=== PATIENT | female | born 1970 | race Caucasian/White ===

== ENCOUNTER 2022-01-19 12:14 | Inpatient (IN) | payer OTHER ==
[2022-01-19 13:15] VITALS: BMI 22.3
[2022-01-19] MEDS ORDERED: BISMUTH SUBSALICYLATE 262 MG/15 ML BTL PO PRN (13:56)
[2022-01-19] MEDS ORDERED: ACETAMINOPHEN 325 MG TABLET (FP) PO PRN ×2 (13:56)
[2022-01-19] MEDS ORDERED: LOPERAMIDE HCL 2 MG CAPSULE PO PRN (13:56)
[2022-01-19] MEDS ORDERED: MAGNESIUM HYDROX 2400MG/30ML ORAL SUSPENSION 30 ML CUP PO PRN (13:56)
[2022-01-19] MEDS ORDERED: BENZOCAINE/MENTHOL (CHLORASEPTIC ) LOZENGE MM PRN (13:56)
[2022-01-19] MEDS ORDERED: DICYCLOMINE HCL 10 MG CAPSULE PO PRN (13:56)
[2022-01-19] MEDS ORDERED: NALOXONE HCL (KLOXXADO) 8 MG SPRAY NS PRN (13:56)
[2022-01-19] MEDS ORDERED: ONDANSETRON *ODT* 4 MG TABLET SL PRN (13:56)
[2022-01-19] MEDS ORDERED: POLYETHYLENE GLYCOL (HEALTHYLAX) 3350 17 GM PACKET PO PRN (13:56)
[2022-01-19] MEDS ORDERED: MAG HYDROX/AL HYDROX/SIMETH 30 ML UNIT-DOSE CUP PO PRN (13:56)
[2022-01-19] MEDS: PRENATAL VITAMINS W/ FOLIC ACID TABLET (FP) PO SCH (15:58)
[2022-01-19 17:20] LABS: HEMOGLOBIN 12.3 GM/dL (10.7-15.3); MCHC 32.3 g/dl (32.0-36.0); MEAN CELL VOLUME 83.6 fl (80-96); MEAN PLT VOLUME 7.9 fl (7.5-11.1); PLATELET COUNT 392 10^3/uL (134-434); RBC 4.54 M/mm3 (3.60-5.2); RDW 14.3 % (11.6-15.6); WHITE BLOOD COUNT 10.1 K/mm3 (4.0-10.0)
[2022-01-19 17:23] LABS: ALBUMIN 3.4 g/dl (3.4-5.0); CALCIUM 8.8 mg/dL (8.5-10.1)
[2022-01-19] MEDS: diazePAM 5 MG TABLET PO SCH ×2 (17:23→22:06)
[2022-01-19 17:28] LABS: BILIRUBIN,TOTAL 0.2 mg/dL (0.2-1); TOT PROT 6.8 g/dl (6.4-8.2)
[2022-01-19] MEDS: NICOTINE 10 MG CARTRIDGE (INHALER) IH PRN (19:47)
[2022-01-19] MEDS: THIAMINE HCL 100 MG TABLET (FP) PO SCH (22:06)
[2022-01-19] MEDS: MELATONIN 5 MG TABLETS PO SCH (22:06)
[2022-01-19] MEDS: METHOCARBAMOL 500 MG TABLET PO PRN (23:15)
[2022-01-20] MEDS: hydrOXYzine PAMOATE 25 MG CAPSULE (FP) PO PRN (03:53)
[2022-01-20] MEDS: NICOTINE 10 MG CARTRIDGE (INHALER) IH PRN ×3 (04:50→20:39)
[2022-01-20] MEDS: diazePAM 5 MG TABLET PO SCH ×4 (04:50→22:03)
[2022-01-20] MEDS: METHOCARBAMOL 500 MG TABLET PO PRN ×2 (08:31→17:17)
[2022-01-20] MEDS ORDERED: methaDONE HCL 10 MG TABLET PO ONE (09:20)
[2022-01-20] MEDS ORDERED: methaDONE 40 MG, methaDONE 20 MG PO ONE (09:26)
[2022-01-20] MEDS: PRENATAL VITAMINS W/ FOLIC ACID TABLET (FP) PO SCH (09:40)
[2022-01-20] MEDS: MELATONIN 5 MG TABLETS PO SCH (22:02)
[2022-01-20] MEDS: THIAMINE HCL 100 MG TABLET (FP) PO SCH (22:03)
[2022-01-20] MEDS: QUEtiapine FUMARATE 50 MG TABLET PO SCH (22:03)
[2022-01-21] MEDS: diazePAM 5 MG TABLET PO PRN ×2 (02:01→10:06)
[2022-01-21] MEDS: METHOCARBAMOL 500 MG TABLET PO PRN ×2 (03:26→17:33)
[2022-01-21] MEDS ORDERED: methaDONE HCL 10 MG TABLET PO SCH (06:00)
[2022-01-21] MEDS: diazePAM 5 MG TABLET PO SCH ×3 (06:03→22:06)
[2022-01-21] MEDS: methaDONE 40 MG, methaDONE 20 MG PO SCH (06:04)
[2022-01-21 10:03] LABS: ALBUMIN 3.3 g/dl (3.4-5.0); BLOOD UREA NITROGEN 25.2 mg/dL (7-18)
[2022-01-21 10:05] LABS: CALCIUM 9.3 mg/dL (8.5-10.1)
[2022-01-21 10:06] LABS: CREATININE 0.9 mg/dL (0.55-1.3)
[2022-01-21] MEDS: PRENATAL VITAMINS W/ FOLIC ACID TABLET (FP) PO SCH (10:06)
[2022-01-21] MEDS: hydrOXYzine PAMOATE 25 MG CAPSULE (FP) PO PRN (10:06)
[2022-01-21] MEDS: QUEtiapine FUMARATE 50 MG TABLET PO SCH (10:06)
[2022-01-21] MEDS: NICOTINE 10 MG CARTRIDGE (INHALER) IH PRN ×3 (10:07→22:07)
[2022-01-21 10:08] LABS: BILIRUBIN,TOTAL 0.4 mg/dL (0.2-1); TOT PROT 6.4 g/dl (6.4-8.2)
[2022-01-21] MEDS ORDERED: COLLOIDAL OATMEAL 1 BAR EACH TP PRN (15:17)
[2022-01-21] MEDS: MELATONIN 5 MG TABLETS PO SCH (22:06)
[2022-01-21] MEDS: THIAMINE HCL 100 MG TABLET (FP) PO SCH (22:06)
[2022-01-21] MEDS: QUEtiapine FUMARATE 100 MG TABLET (FP) PO SCH (22:06)
[2022-01-22] MEDS: diazePAM 5 MG TABLET PO SCH ×2 (05:21→17:34)
[2022-01-22] MEDS: methaDONE 40 MG, methaDONE 20 MG PO SCH (05:22)
[2022-01-22] MEDS: NICOTINE 10 MG CARTRIDGE (INHALER) IH PRN ×2 (05:25→22:34)
[2022-01-22] MEDS: METHOCARBAMOL 500 MG TABLET PO PRN (06:28)
[2022-01-22] MEDS: PRENATAL VITAMINS W/ FOLIC ACID TABLET (FP) PO SCH (10:21)
[2022-01-22] MEDS: QUEtiapine FUMARATE 50 MG TABLET PO SCH (10:22)
[2022-01-22] MEDS: hydrOXYzine PAMOATE 25 MG CAPSULE (FP) PO PRN (10:23)
[2022-01-22 13:24] VITALS: RESP 18
[2022-01-22] MEDS: QUEtiapine FUMARATE 100 MG TABLET (FP) PO SCH (22:32)
[2022-01-22] MEDS: THIAMINE HCL 100 MG TABLET (FP) PO SCH (22:32)
[2022-01-22] MEDS: MELATONIN 5 MG TABLETS PO SCH (22:32)
[2022-01-23] MEDS: METHOCARBAMOL 500 MG TABLET PO PRN ×2 (03:31→09:51)
[2022-01-23] MEDS: methaDONE 40 MG, methaDONE 20 MG PO SCH (05:49)
[2022-01-23] MEDS ORDERED: diazePAM 5 MG TABLET PO ONE (06:00)
[2022-01-23 09:50] VITALS: BP 98/59; PULSE 74; TEMP 98.8
[2022-01-23] MEDS: QUEtiapine FUMARATE 50 MG TABLET PO SCH (09:50)
[2022-01-23] MEDS: PRENATAL VITAMINS W/ FOLIC ACID TABLET (FP) PO SCH (09:51)
== END 2022-01-23 10:03 | disposition home or self-care (01) | DRG 773 ==
LOC: YASAS 12:14 → Y3N 14:08
PROVIDERS: ADMIT Allergy & Immunology; ATTEND Family Medicine Addiction Medicine
PROC: HZ2ZZZZ Detoxification Services for Substance Abuse Treatment (ICD-10-PCS; principal; 2022-01-19)
DX: F13.230 Sedative, hypnotic or anxiolytic dependence with withdrawal, uncomplicated (principal); F11.20 Opioid dependence, uncomplicated; F14.10 Cocaine abuse, uncomplicated; F31.9 Bipolar disorder, unspecified; F25.9 Schizoaffective disorder, unspecified; F19.24 Other psychoactive substance dependence with psychoactive substance-induced mood disorder; Z62.810 Personal history of physical and sexual abuse in childhood; R76.8 Other specified abnormal immunological findings in serum; Z86.19 Personal history of other infectious and parasitic diseases; Z87.891 Personal history of nicotine dependence; Z88.6 Allergy status to analgesic agent; Z28.310 Unvaccinated for COVID-19; Z28.9 Immunization not carried out for unspecified reason
CPT/HCPCS: 36415; 80053; 81025; 85027; 86593; 86780; 87811; C9803-CS; U0003; U0005

== ENCOUNTER 2022-05-28 16:27 | Inpatient (IN) | payer OTHER ==
[2022-05-28 19:00] VITALS: BMI 24.7
[2022-05-28] MEDS ORDERED: guaiFENesin 600 MG TABLET.ER (FP) PO PRN (19:45)
[2022-05-28] MEDS ORDERED: ONDANSETRON *ODT* 4 MG TABLET SL PRN (19:45)
[2022-05-28] MEDS ORDERED: NALOXONE HCL 0.4 MG/ML VIAL IM PRN (19:45)
[2022-05-28] MEDS ORDERED: BISMUTH SUBSALICYLATE 524 MG/30 ML PO PRN (19:45)
[2022-05-28] MEDS ORDERED: LOPERAMIDE HCL 2 MG CAPSULE PO PRN (19:45)
[2022-05-28] MEDS ORDERED: hydrOXYzine PAMOATE 25 MG CAPSULE (FP) PO PRN (19:45)
[2022-05-28] MEDS ORDERED: IBUPROFEN 400 MG TABLET (FP) PO PRN (19:45)
[2022-05-28] MEDS ORDERED: BENZOCAINE/MENTHOL (CHLORASEPTIC ) LOZENGE MM PRN (19:45)
[2022-05-28] MEDS ORDERED: BENZONATATE 200 MG CAPSULE PO PRN (19:45)
[2022-05-28] MEDS ORDERED: POLYETHYLENE GLYCOL (HEALTHYLAX) 3350 17 GM PACKET PO PRN (19:45)
[2022-05-28] MEDS ORDERED: NALOXONE HCL (KLOXXADO) 8 MG SPRAY NS PRN (19:45)
[2022-05-28] MEDS ORDERED: DICYCLOMINE HCL 10 MG CAPSULE PO PRN (19:45)
[2022-05-28] MEDS ORDERED: IBUPROFEN 600 MG TABLET (FP) PO PRN (19:45)
[2022-05-28] MEDS ORDERED: MAG HYDROX/AL HYDROX/SIMETH 30 ML UNIT-DOSE CUP PO PRN (19:45)
[2022-05-28] MEDS ORDERED: COLLOIDAL OATMEAL 1 BAR EACH TP PRN (19:49)
[2022-05-28] MEDS: METHOCARBAMOL 500 MG TABLET PO PRN (20:57)
[2022-05-28] MEDS: MELATONIN 5 MG TABLETS PO SCH (22:30)
[2022-05-28] MEDS: diazePAM 5 MG TABLET PO SCH (22:31)
[2022-05-28] MEDS: THIAMINE HCL 100 MG TABLET (FP) PO SCH (22:31)
[2022-05-28] MEDS: ACETAMINOPHEN 325 MG TABLET (FP) PO PRN (23:51)
[2022-05-29] MEDS: diazePAM 5 MG TABLET PO PRN (01:15)
[2022-05-29] MEDS: diazePAM 5 MG TABLET PO SCH ×4 (05:12→22:33)
[2022-05-29] MEDS: METHOCARBAMOL 500 MG TABLET PO PRN ×3 (05:14→22:35)
[2022-05-29] MEDS: MAGNESIUM HYDROX 2400MG/30ML ORAL SUSPENSION 30 ML CUP PO PRN (06:23)
[2022-05-29] MEDS ORDERED: methaDONE HCL 10 MG TABLET PO SCH (09:30)
[2022-05-29] MEDS: PRENATAL VITAMINS W/ FOLIC ACID TABLET (FP) PO SCH (09:41)
[2022-05-29] MEDS: methaDONE 40 MG, methaDONE 20 MG PO SCH (09:41)
[2022-05-29] MEDS: NICOTINE 10 MG CARTRIDGE (INHALER) IH PRN ×2 (09:43→17:13)
[2022-05-29 11:47] LABS: HEMOGLOBIN 12.6 GM/dL (10.7-15.3); MCH 27.1 pg (25.7-33.7); MCHC 33.2 g/dl (32.0-36.0); MEAN CELL VOLUME 81.8 fl (80-96); MEAN PLT VOLUME 7.4 fl (7.5-11.1); PLATELET COUNT 303 10^3/uL (134-434); RBC 4.64 M/mm3 (3.60-5.2); RDW 14.1 % (11.6-15.6)
[2022-05-29 11:51] LABS: BLOOD UREA NITROGEN 22.3 mg/dL (7-18)
[2022-05-29 11:52] LABS: ALBUMIN 3.3 g/dl (3.4-5.0)
[2022-05-29 11:55] LABS: CREATININE 0.8 mg/dL (0.55-1.3)
[2022-05-29 11:56] LABS: BILIRUBIN,TOTAL 0.7 mg/dL (0.2-1); TOT PROT 6.7 g/dl (6.4-8.2)
[2022-05-29] MEDS: ACETAMINOPHEN 325 MG TABLET (FP) PO PRN (17:10)
[2022-05-29] MEDS: THIAMINE HCL 100 MG TABLET (FP) PO SCH (22:34)
[2022-05-29] MEDS: MELATONIN 5 MG TABLETS PO SCH (22:34)
[2022-05-29] MEDS: QUEtiapine FUMARATE 100 MG TABLET (FP) PO SCH (22:35)
[2022-05-30] MEDS: diazePAM 5 MG TABLET PO SCH ×3 (05:56→22:13)
[2022-05-30] MEDS: methaDONE 40 MG, methaDONE 20 MG PO SCH (05:56)
[2022-05-30] MEDS: NICOTINE 10 MG CARTRIDGE (INHALER) IH PRN ×2 (06:00→22:49)
[2022-05-30] MEDS: PRENATAL VITAMINS W/ FOLIC ACID TABLET (FP) PO SCH (10:39)
[2022-05-30] MEDS: MAGNESIUM HYDROX 2400MG/30ML ORAL SUSPENSION 30 ML CUP PO PRN (10:42)
[2022-05-30] MEDS: METHOCARBAMOL 500 MG TABLET PO PRN ×2 (13:50→22:14)
[2022-05-30] MEDS: QUEtiapine FUMARATE 100 MG TABLET (FP) PO SCH (22:12)
[2022-05-30] MEDS: THIAMINE HCL 100 MG TABLET (FP) PO SCH (22:12)
[2022-05-30] MEDS: MELATONIN 5 MG TABLETS PO SCH (22:12)
[2022-05-31] MEDS: methaDONE 40 MG, methaDONE 20 MG PO SCH (05:39)
[2022-05-31] MEDS: diazePAM 5 MG TABLET PO SCH ×2 (05:39→17:58)
[2022-05-31] MEDS: PRENATAL VITAMINS W/ FOLIC ACID TABLET (FP) PO SCH (10:47)
[2022-05-31] MEDS: ACETAMINOPHEN 325 MG TABLET (FP) PO PRN ×2 (10:47→17:58)
[2022-05-31] MEDS: diazePAM 5 MG TABLET PO PRN (10:48)
[2022-05-31] MEDS: NICOTINE 10 MG CARTRIDGE (INHALER) IH PRN ×2 (11:11→22:42)
[2022-05-31] MEDS: MELATONIN 5 MG TABLETS PO SCH (22:29)
[2022-05-31] MEDS: THIAMINE HCL 100 MG TABLET (FP) PO SCH (22:29)
[2022-05-31] MEDS: QUEtiapine FUMARATE 100 MG TABLET (FP) PO SCH (22:29)
[2022-05-31] MEDS: METHOCARBAMOL 500 MG TABLET PO PRN (22:31)
[2022-06-01] MEDS: methaDONE 40 MG, methaDONE 20 MG PO SCH (05:52)
[2022-06-01] MEDS ORDERED: diazePAM 5 MG TABLET PO ONE (06:00)
[2022-06-01 08:48] VITALS: BP 104/66; PULSE 62; RESP 18; TEMP 98.1
[2022-06-01] MEDS: PRENATAL VITAMINS W/ FOLIC ACID TABLET (FP) PO SCH (10:03)
[2022-06-01] MEDS: ACETAMINOPHEN 325 MG TABLET (FP) PO PRN (10:03)
[2022-06-01] MEDS: NICOTINE 10 MG CARTRIDGE (INHALER) IH PRN (10:51)
== END 2022-06-01 11:57 | disposition home or self-care (01) | DRG 773 ==
LOC: YASAS 16:27 → Y3N 20:18
PROVIDERS: ADMIT Allergy & Immunology; ATTEND Surgery
PROC: HZ2ZZZZ Detoxification Services for Substance Abuse Treatment (ICD-10-PCS; principal; 2022-05-28)
DX: F13.230 Sedative, hypnotic or anxiolytic dependence with withdrawal, uncomplicated (principal); F10.230 Alcohol dependence with withdrawal, uncomplicated; F11.20 Opioid dependence, uncomplicated; F31.9 Bipolar disorder, unspecified; F20.9 Schizophrenia, unspecified; F41.9 Anxiety disorder, unspecified; F19.24 Other psychoactive substance dependence with psychoactive substance-induced mood disorder; G47.00 Insomnia, unspecified; J45.30 Mild persistent asthma, uncomplicated; R76.8 Other specified abnormal immunological findings in serum; R79.89 Other specified abnormal findings of blood chemistry; Z86.19 Personal history of other infectious and parasitic diseases; Z28.310 Unvaccinated for COVID-19; Z28.9 Immunization not carried out for unspecified reason
CPT/HCPCS: 36415; 80053; 81025; 85027; 86593; 86780; C9803-CS; U0003; U0005

== ENCOUNTER 2022-07-13 17:57 | Inpatient (IN) | payer OTHER ==
[2022-07-13 19:29] VITALS: BMI 23.6
[2022-07-13] MEDS ORDERED: BENZONATATE 200 MG CAPSULE PO PRN (22:00)
[2022-07-13] MEDS ORDERED: guaiFENesin 600 MG TABLET.ER (FP) PO PRN (22:00)
[2022-07-13] MEDS ORDERED: BENZOCAINE/MENTHOL (CHLORASEPTIC ) LOZENGE MM PRN (22:00)
[2022-07-13] MEDS ORDERED: DICYCLOMINE HCL 10 MG CAPSULE PO PRN (22:00)
[2022-07-13] MEDS ORDERED: NALOXONE HCL (KLOXXADO) 8 MG SPRAY NS PRN (22:00)
[2022-07-13] MEDS ORDERED: LOPERAMIDE HCL 2 MG CAPSULE PO PRN (22:00)
[2022-07-13] MEDS ORDERED: MAGNESIUM HYDROX 2400MG/30ML ORAL SUSPENSION 30 ML CUP PO PRN (22:00)
[2022-07-13] MEDS ORDERED: ONDANSETRON *ODT* 4 MG TABLET SL PRN (22:00)
[2022-07-13] MEDS ORDERED: MAG HYDROX/AL HYDROX/SIMETH 30 ML UNIT-DOSE CUP PO PRN (22:00)
[2022-07-13] MEDS ORDERED: POLYETHYLENE GLYCOL (HEALTHYLAX) 3350 17 GM PACKET PO PRN (22:00)
[2022-07-13] MEDS ORDERED: NALOXONE HCL 0.4 MG/ML VIAL IM PRN (22:00)
[2022-07-13] MEDS ORDERED: ACETAMINOPHEN 325 MG TABLET (FP) PO PRN (22:00)
[2022-07-14] MEDS: THIAMINE HCL 100 MG TABLET (FP) PO SCH ×2 (02:28→22:17)
[2022-07-14] MEDS: MELATONIN 5 MG TABLETS PO SCH ×2 (02:28→22:17)
[2022-07-14] MEDS ORDERED: methaDONE HCL 10 MG TABLET PO ONE (07:33)
[2022-07-14] MEDS ORDERED: methaDONE 40 MG, methaDONE 20 MG PO ONE (07:45)
[2022-07-14] MEDS: diazePAM 5 MG TABLET PO SCH ×3 (10:18→22:18)
[2022-07-14] MEDS: PRENATAL VITAMINS W/ FOLIC ACID TABLET (FP) PO SCH (10:18)
[2022-07-14 11:38] LABS: HEMATOCRIT 37.9 % (32.4-45.2); HEMOGLOBIN 12.7 GM/dL (10.7-15.3); MCH 27.5 pg (25.7-33.7); MCHC 33.5 g/dl (32.0-36.0); MEAN CELL VOLUME 82.1 fl (80-96); MEAN PLT VOLUME 8.2 fl (7.5-11.1); PLATELET COUNT 320 10^3/uL (134-434); RBC 4.61 M/mm3 (3.60-5.2); RDW 14.6 % (11.6-15.6); WHITE BLOOD COUNT 5.2 K/mm3 (4.0-10.0)
[2022-07-14 11:50] LABS: POTASSIUM 4.3 mmol/L (3.5-5.1)
[2022-07-14 11:53] LABS: CALCIUM 8.9 mg/dL (8.5-10.1)
[2022-07-14 11:54] LABS: BLOOD UREA NITROGEN 20.6 mg/dL (7-18)
[2022-07-14 11:57] LABS: CREATININE 0.8 mg/dL (0.55-1.3)
[2022-07-14 11:58] LABS: BILIRUBIN,TOTAL 0.2 mg/dL (0.2-1)
[2022-07-14 12:43] LABS: HIV INTERPRETATION NEGATIVE (NEGATIVE)
[2022-07-14] MEDS: METHOCARBAMOL 500 MG TABLET PO PRN (17:43)
[2022-07-14] MEDS ORDERED: COLLOIDAL OATMEAL 1 BAR EACH TP PRN (18:06)
[2022-07-14] MEDS: QUEtiapine FUMARATE 100 MG TABLET (FP) PO SCH (22:18)
[2022-07-15] MEDS: diazePAM 5 MG TABLET PO SCH ×4 (05:37→22:14)
[2022-07-15] MEDS: methaDONE 40 MG, methaDONE 20 MG PO SCH (05:39)
[2022-07-15] MEDS ORDERED: methaDONE HCL 10 MG TABLET PO SCH (06:00)
[2022-07-15] MEDS: QUEtiapine FUMARATE 50 MG TABLET PO SCH (10:10)
[2022-07-15] MEDS: PRENATAL VITAMINS W/ FOLIC ACID TABLET (FP) PO SCH (10:10)
[2022-07-15] MEDS: METHOCARBAMOL 500 MG TABLET PO PRN (15:27)
[2022-07-15] MEDS: THIAMINE HCL 100 MG TABLET (FP) PO SCH (22:13)
[2022-07-15] MEDS: QUEtiapine FUMARATE 100 MG TABLET (FP) PO SCH (22:14)
[2022-07-15] MEDS: MELATONIN 5 MG TABLETS PO SCH (22:14)
[2022-07-16] MEDS: diazePAM 5 MG TABLET PO SCH ×3 (05:36→22:10)
[2022-07-16] MEDS: methaDONE 40 MG, methaDONE 20 MG PO SCH (05:37)
[2022-07-16] MEDS: diazePAM 5 MG TABLET PO PRN (09:58)
[2022-07-16] MEDS: PRENATAL VITAMINS W/ FOLIC ACID TABLET (FP) PO SCH (09:59)
[2022-07-16] MEDS: QUEtiapine FUMARATE 50 MG TABLET PO SCH (09:59)
[2022-07-16] MEDS: QUEtiapine FUMARATE 100 MG TABLET (FP) PO SCH (22:10)
[2022-07-16] MEDS: THIAMINE HCL 100 MG TABLET (FP) PO SCH (22:10)
[2022-07-16] MEDS: MELATONIN 5 MG TABLETS PO SCH (22:10)
[2022-07-16] MEDS: METHOCARBAMOL 500 MG TABLET PO PRN (22:35)
[2022-07-17] MEDS: diazePAM 5 MG TABLET PO SCH ×2 (05:34→17:33)
[2022-07-17] MEDS: methaDONE 40 MG, methaDONE 20 MG PO SCH (05:35)
[2022-07-17] MEDS: diazePAM 5 MG TABLET PO PRN (09:36)
[2022-07-17] MEDS: PRENATAL VITAMINS W/ FOLIC ACID TABLET (FP) PO SCH (09:36)
[2022-07-17] MEDS: QUEtiapine FUMARATE 50 MG TABLET PO SCH (09:36)
[2022-07-17] MEDS: NICOTINE POLACRILEX 4 MG GUM BUC PRN ×2 (12:20→17:35)
[2022-07-17] MEDS: METHOCARBAMOL 500 MG TABLET PO PRN (17:35)
[2022-07-17] MEDS: THIAMINE HCL 100 MG TABLET (FP) PO SCH (22:20)
[2022-07-17] MEDS: QUEtiapine FUMARATE 100 MG TABLET (FP) PO SCH (22:20)
[2022-07-17] MEDS: MELATONIN 5 MG TABLETS PO SCH (22:20)
[2022-07-18] MEDS: methaDONE 40 MG, methaDONE 20 MG PO SCH (05:59)
[2022-07-18] MEDS ORDERED: diazePAM 5 MG TABLET PO ONE (06:00)
[2022-07-18 06:46] VITALS: RESP 17
[2022-07-18 09:36] VITALS: BP 123/67; PULSE 74; TEMP 98.1
== END 2022-07-18 09:18 | disposition home or self-care (01) | DRG 773 ==
LOC: YASAS 17:57 → Y3N 07-14 02:07
PROVIDERS: ADMIT Allergy & Immunology; ATTEND Surgery
PROC: HZ2ZZZZ Detoxification Services for Substance Abuse Treatment (ICD-10-PCS; principal; 2022-07-14)
DX: F13.230 Sedative, hypnotic or anxiolytic dependence with withdrawal, uncomplicated (principal); F11.20 Opioid dependence, uncomplicated; F31.9 Bipolar disorder, unspecified; F20.9 Schizophrenia, unspecified; F19.24 Other psychoactive substance dependence with psychoactive substance-induced mood disorder; F41.9 Anxiety disorder, unspecified; J45.30 Mild persistent asthma, uncomplicated; Z28.310 Unvaccinated for COVID-19; Z28.9 Immunization not carried out for unspecified reason; Z88.6 Allergy status to analgesic agent
CPT/HCPCS: 36415; 80053; 81025; 85027; 86593; 86780; 87389; C9803-CS; U0003; U0005

== ENCOUNTER 2022-10-03 13:20 | Inpatient (IN) | payer OTHER ==
[2022-10-03 14:02] VITALS: BMI 22.1
[2022-10-03] MEDS ORDERED: ACETAMINOPHEN 325 MG TABLET (FP) PO PRN (18:07)
[2022-10-03] MEDS ORDERED: ONDANSETRON *ODT* 4 MG TABLET SL PRN (18:07)
[2022-10-03] MEDS ORDERED: IBUPROFEN 600 MG TABLET (FP) PO PRN (18:07)
[2022-10-03] MEDS ORDERED: LOPERAMIDE HCL 2 MG CAPSULE PO PRN (18:07)
[2022-10-03] MEDS ORDERED: NALOXONE HCL (KLOXXADO) 8 MG SPRAY NS PRN (18:07)
[2022-10-03] MEDS ORDERED: BISMUTH SUBSALICYLATE 524 MG/30 ML PO PRN (18:07)
[2022-10-03] MEDS ORDERED: NALOXONE HCL 0.4 MG/ML VIAL IM PRN (18:07)
[2022-10-03] MEDS ORDERED: BENZOCAINE/MENTHOL (CHLORASEPTIC ) LOZENGE MM PRN (18:07)
[2022-10-03] MEDS ORDERED: MAG HYDROX/AL HYDROX/SIMETH 30 ML UNIT-DOSE CUP PO PRN (18:07)
[2022-10-03] MEDS ORDERED: guaiFENesin 600 MG TABLET.ER (FP) PO PRN (18:07)
[2022-10-03] MEDS ORDERED: IBUPROFEN 400 MG TABLET (FP) PO PRN (18:07)
[2022-10-03] MEDS ORDERED: diazePAM 5 MG TABLET PO PRN (18:07)
[2022-10-03] MEDS ORDERED: BENZONATATE 200 MG CAPSULE PO PRN (18:07)
[2022-10-03] MEDS ORDERED: MAGNESIUM HYDROX 2400MG/30ML ORAL SUSPENSION 30 ML CUP PO PRN (18:07)
[2022-10-03] MEDS ORDERED: POLYETHYLENE GLYCOL (HEALTHYLAX) 3350 17 GM PACKET PO PRN (18:07)
[2022-10-03] MEDS ORDERED: DICYCLOMINE HCL 10 MG CAPSULE PO PRN (18:07)
[2022-10-03] MEDS ORDERED: COLLOIDAL OATMEAL 1 BAR EACH TP PRN (18:14)
[2022-10-03] MEDS: MELATONIN 5 MG TABLETS PO SCH (22:14)
[2022-10-03] MEDS: THIAMINE HCL 100 MG TABLET (FP) PO SCH (22:14)
[2022-10-03] MEDS: hydrOXYzine PAMOATE 25 MG CAPSULE (FP) PO PRN (22:14)
[2022-10-03] MEDS: METHOCARBAMOL 500 MG TABLET PO PRN (22:14)
[2022-10-03] MEDS: diazePAM 5 MG TABLET PO SCH (22:16)
[2022-10-04] MEDS: diazePAM 5 MG TABLET PO SCH ×4 (05:48→22:16)
[2022-10-04] MEDS: PRENATAL VITAMINS W/ FOLIC ACID TABLET (FP) PO SCH (10:24)
[2022-10-04] MEDS: QUEtiapine FUMARATE 50 MG TABLET PO SCH ×2 (10:24→22:16)
[2022-10-04] MEDS: THIAMINE HCL 100 MG TABLET (FP) PO SCH (22:15)
[2022-10-04] MEDS: MELATONIN 5 MG TABLETS PO SCH (22:15)
[2022-10-05] MEDS: diazePAM 5 MG TABLET PO SCH ×3 (06:05→22:16)
[2022-10-05] MEDS ORDERED: methaDONE HCL 10 MG TABLET PO SCH (09:00)
[2022-10-05] MEDS ORDERED: methaDONE 40 MG, methaDONE 20 MG PO ONE (09:15)
[2022-10-05] MEDS: QUEtiapine FUMARATE 50 MG TABLET PO SCH ×2 (09:31→22:15)
[2022-10-05] MEDS: PRENATAL VITAMINS W/ FOLIC ACID TABLET (FP) PO SCH (09:31)
[2022-10-05] MEDS: METHOCARBAMOL 500 MG TABLET PO PRN ×2 (09:32→22:15)
[2022-10-05 11:39] LABS: HEMATOCRIT 41.7 % (32.4-45.2); HEMOGLOBIN 13.4 GM/dL (10.7-15.3); MCH 27.1 pg (25.7-33.7); MCHC 32.2 g/dl (32.0-36.0); MEAN CELL VOLUME 84.2 fl (80-96); PLATELET COUNT 336 10^3/uL (134-434); RBC 4.96 M/mm3 (3.60-5.2); RDW 14.6 % (11.6-15.6); WHITE BLOOD COUNT 6.6 K/mm3 (4.0-10.0)
[2022-10-05 12:08] LABS: POTASSIUM 4.9 mmol/L (3.5-5.1)
[2022-10-05 12:09] LABS: CALCIUM 8.7 mg/dL (8.5-10.1)
[2022-10-05 12:10] LABS: ALBUMIN 3.2 g/dl (3.4-5.0); BLOOD UREA NITROGEN 16.6 mg/dL (7-18)
[2022-10-05 12:13] LABS: CREATININE 0.8 mg/dL (0.55-1.3)
[2022-10-05 12:15] LABS: BILIRUBIN,TOTAL 0.1 mg/dL (0.2-1); TOT PROT 6.7 g/dl (6.4-8.2)
[2022-10-05] MEDS: hydrOXYzine PAMOATE 25 MG CAPSULE (FP) PO PRN (22:15)
[2022-10-05] MEDS: THIAMINE HCL 100 MG TABLET (FP) PO SCH (22:15)
[2022-10-05] MEDS: MELATONIN 5 MG TABLETS PO SCH (22:15)
[2022-10-06] MEDS: methaDONE 40 MG, methaDONE 20 MG PO SCH (05:35)
[2022-10-06] MEDS: diazePAM 5 MG TABLET PO SCH ×2 (05:36→17:25)
[2022-10-06] MEDS: PRENATAL VITAMINS W/ FOLIC ACID TABLET (FP) PO SCH (09:51)
[2022-10-06] MEDS: hydrOXYzine PAMOATE 25 MG CAPSULE (FP) PO PRN (09:51)
[2022-10-06] MEDS: QUEtiapine FUMARATE 50 MG TABLET PO SCH ×2 (09:51→22:14)
[2022-10-06] MEDS: THIAMINE HCL 100 MG TABLET (FP) PO SCH (22:14)
[2022-10-06] MEDS: METHOCARBAMOL 500 MG TABLET PO PRN (22:14)
[2022-10-06] MEDS: MELATONIN 5 MG TABLETS PO SCH (22:14)
[2022-10-07] MEDS: methaDONE 40 MG, methaDONE 20 MG PO SCH (05:37)
[2022-10-07] MEDS ORDERED: diazePAM 5 MG TABLET PO ONE (06:00)
[2022-10-07] MEDS: QUEtiapine FUMARATE 50 MG TABLET PO SCH ×2 (10:22→22:09)
[2022-10-07] MEDS: PRENATAL VITAMINS W/ FOLIC ACID TABLET (FP) PO SCH (10:23)
[2022-10-07] MEDS: METHOCARBAMOL 500 MG TABLET PO PRN ×2 (10:23→22:10)
[2022-10-07] MEDS: THIAMINE HCL 100 MG TABLET (FP) PO SCH (22:09)
[2022-10-07] MEDS: MELATONIN 5 MG TABLETS PO SCH (22:09)
[2022-10-08] MEDS: methaDONE 40 MG, methaDONE 20 MG PO SCH (05:14)
[2022-10-08] MEDS: METHOCARBAMOL 500 MG TABLET PO PRN (07:27)
[2022-10-08 09:36] VITALS: BP 120/81; PULSE 90; RESP 18; TEMP 97.9
== END 2022-10-08 10:03 | disposition home or self-care (01) | DRG 773 ==
LOC: YASAS 13:20 → Y3N 18:05
PROVIDERS: ADMIT Allergy & Immunology; ATTEND Allergy & Immunology
PROC: HZ2ZZZZ Detoxification Services for Substance Abuse Treatment (ICD-10-PCS; principal; 2022-10-03)
DX: F13.230 Sedative, hypnotic or anxiolytic dependence with withdrawal, uncomplicated (principal); F11.20 Opioid dependence, uncomplicated; F25.9 Schizoaffective disorder, unspecified; F31.9 Bipolar disorder, unspecified; F19.24 Other psychoactive substance dependence with psychoactive substance-induced mood disorder; J45.30 Mild persistent asthma, uncomplicated; Z87.891 Personal history of nicotine dependence; Z28.9 Immunization not carried out for unspecified reason; Z88.6 Allergy status to analgesic agent; Z56.0 Unemployment, unspecified; Z59.00 Homelessness unspecified
CPT/HCPCS: 36415; 80053; 81025; 85027; 86593; 86780; 87635

== ENCOUNTER 2023-05-14 12:46 | Inpatient (IN) | payer OTHER ==
[2023-05-14 13:41] VITALS: BMI 23.8
[2023-05-14] MEDS ORDERED: DICYCLOMINE HCL 10 MG CAPSULE PO PRN (14:19)
[2023-05-14] MEDS ORDERED: ACETAMINOPHEN 325 MG TABLET (FP) PO PRN (14:19)
[2023-05-14] MEDS ORDERED: ONDANSETRON *ODT* 4 MG TABLET SL PRN (14:19)
[2023-05-14] MEDS ORDERED: MAGNESIUM HYDROX 2400MG/30ML ORAL SUSPENSION 30 ML CUP PO PRN (14:19)
[2023-05-14] MEDS ORDERED: diazePAM 5 MG TABLET PO PRN (14:19)
[2023-05-14] MEDS ORDERED: BENZONATATE 200 MG CAPSULE PO PRN (14:19)
[2023-05-14] MEDS ORDERED: IBUPROFEN 600 MG TABLET (FP) PO PRN (14:19)
[2023-05-14] MEDS ORDERED: IBUPROFEN 400 MG TABLET (FP) PO PRN (14:19)
[2023-05-14] MEDS ORDERED: BISMUTH SUBSALICYLATE 524 MG/30 ML PO PRN (14:19)
[2023-05-14] MEDS ORDERED: BENZOCAINE/MENTHOL (CHLORASEPTIC ) LOZENGE MM PRN (14:19)
[2023-05-14] MEDS ORDERED: NALOXONE HCL (KLOXXADO) 8 MG SPRAY NS PRN (14:19)
[2023-05-14] MEDS ORDERED: guaiFENesin 600 MG TABLET.ER (FP) PO PRN (14:19)
[2023-05-14] MEDS ORDERED: LOPERAMIDE HCL 2 MG CAPSULE PO PRN (14:19)
[2023-05-14] MEDS ORDERED: NALOXONE HCL 0.4 MG/ML VIAL IM PRN (14:19)
[2023-05-14] MEDS ORDERED: hydrOXYzine PAMOATE 25 MG CAPSULE (FP) PO PRN (14:19)
[2023-05-14] MEDS ORDERED: MAG HYDROX/AL HYDROX/SIMETH 30 ML UNIT-DOSE CUP PO PRN (14:19)
[2023-05-14] MEDS ORDERED: diazePAM 5 MG TABLET ONE (14:57)
[2023-05-14] MEDS ORDERED: PRENATAL VITAMINS W/ FOLIC ACID TABLET (FP) PO ONE (14:57)
[2023-05-14] MEDS: diazePAM 5 MG TABLET PO ONE (15:01)
[2023-05-14] MEDS: PRENATAL VITAMINS W/ FOLIC ACID TABLET (FP) PO SCH (15:01)
[2023-05-14] MEDS: METHOCARBAMOL 500 MG TABLET PO PRN (15:58)
[2023-05-14] MEDS: NICOTINE POLACRILEX 4 MG GUM BUC PRN (15:58)
[2023-05-14] MEDS: diazePAM 5 MG TABLET PO SCH (17:48)
[2023-05-14] MEDS: QUEtiapine FUMARATE 50 MG TABLET PO SCH (22:10)
[2023-05-14] MEDS: THIAMINE HCL 100 MG TABLET (FP) PO SCH (22:10)
[2023-05-14] MEDS: MELATONIN 5 MG TABLETS PO SCH (22:11)
[2023-05-15] MEDS: methaDONE 40 MG, methaDONE 20 MG PO SCH (10:30)
[2023-05-15] MEDS: methaDONE HCL 40 MG DISPERSABLE TABLET PO SCH (11:14)
[2023-05-15 12:04] LABS: CHLORIDE 106 mmol/L (98-107); POTASSIUM 4.3 mmol/L (3.5-5.1); SODIUM 140 mmol/L (136-145)
[2023-05-15 12:07] LABS: HEMATOCRIT 35.8 % (32.4-45.2); HEMOGLOBIN 11.7 GM/dL (10.7-15.3); MCH 26.9 pg (25.7-33.7); MCHC 32.6 g/dl (32.0-36.0); MEAN CELL VOLUME 82.5 fl (80-96); MEAN PLT VOLUME 7.7 fl (7.5-11.1); PLATELET COUNT 292 10^3/uL (134-434); RBC 4.35 M/mm3 (3.60-5.2); RDW 15.3 % (11.6-15.6)
[2023-05-15 12:09] LABS: BLOOD UREA NITROGEN 27.5 mg/dL (7-18); GLUCOSE,RANDOM 115 mg/dL (74-106)
[2023-05-15 12:10] LABS: CALCIUM 8.7 mg/dL (8.5-10.1)
[2023-05-15 12:11] LABS: ALBUMIN 2.9 g/dl (3.4-5.0); ANION GAP 5 mmol/L (4-13); CO2 29 mmol/L (21-32)
[2023-05-15 12:12] LABS: CREATININE 0.8 mg/dL (0.55-1.3); SGOT/AST 17 U/L (15-37); SGPT/ALT 16 U/L (13-61)
[2023-05-15 12:14] LABS: TOT PROT 5.8 g/dl (6.4-8.2)
[2023-05-15 12:17] LABS: ALK PHOS 97 U/L (45-117)
[2023-05-15 12:18] LABS: BILIRUBIN,TOTAL 0.4 mg/dL (0.2-1)
[2023-05-16] MEDS ORDERED: guaiFENesin/D-METHORPHAN HB 10 ML UNIT-DOSE CUPS PO PRN (02:45)
[2023-05-16] MEDS: diazePAM 5 MG TABLET PO SCH (06:07)
[2023-05-16] MEDS: POLYETHYLENE GLYCOL (HEALTHYLAX) 3350 17 GM PACKET PO PRN (06:09)
[2023-05-17] MEDS: diazePAM 5 MG TABLET PO SCH (05:46)
[2023-05-17] MEDS ORDERED: methaDONE HCL 10 MG TABLET PO ONE (10:00)
[2023-05-17] MEDS: methaDONE 40 MG, methaDONE 20 MG PO ONE (10:18)
[2023-05-17 21:19] VITALS: RESP 17
[2023-05-18] MEDS: diazePAM 5 MG TABLET PO ONE (05:41)
[2023-05-18] MEDS: methaDONE 40 MG, methaDONE 20 MG PO SCH (05:41)
[2023-05-18] MEDS ORDERED: methaDONE HCL 10 MG TABLET PO SCH (06:00)
[2023-05-18 06:23] VITALS: BP 119/74; PULSE 77; TEMP 97.7
== END 2023-05-18 09:30 | disposition home or self-care (01) | DRG 773 ==
LOC: YASAS 12:46 → Y6N 14:58
PROVIDERS: ADMIT Allergy & Immunology; ATTEND Surgery
PROC: HZ2ZZZZ Detoxification Services for Substance Abuse Treatment (ICD-10-PCS; principal; 2023-05-14)
DX: F10.230 Alcohol dependence with withdrawal, uncomplicated (principal); F13.230 Sedative, hypnotic or anxiolytic dependence with withdrawal, uncomplicated; F11.20 Opioid dependence, uncomplicated; F17.210 Nicotine dependence, cigarettes, uncomplicated; F25.9 Schizoaffective disorder, unspecified; F19.282 Other psychoactive substance dependence with psychoactive substance-induced sleep disorder; F19.280 Other psychoactive substance dependence with psychoactive substance-induced anxiety disorder; F31.9 Bipolar disorder, unspecified; Z62.810 Personal history of physical and sexual abuse in childhood; Z63.8 Other specified problems related to primary support group; Z91.410 Personal history of adult physical and sexual abuse; Z63.0 Problems in relationship with spouse or partner; Z86.19 Personal history of other infectious and parasitic diseases; Z28.310 Unvaccinated for COVID-19; Z28.9 Immunization not carried out for unspecified reason; Z88.6 Allergy status to analgesic agent
CPT/HCPCS: 36415; 80053; 80307; 85027; 86593; 86780; 93005; 93010

== ENCOUNTER 2023-09-15 12:55 | Inpatient (IN) | payer OTHER ==
[2023-09-15 13:11] VITALS: BMI 22.6
[2023-09-15] MEDS ORDERED: BISMUTH SUBSALICYLATE 262 MG/15 ML BTL PO PRN (15:19)
[2023-09-15] MEDS ORDERED: NICOTINE POLACRILEX 2 MG LOZENGE BC PRN (15:19)
[2023-09-15] MEDS ORDERED: BENZONATATE 200 MG CAPSULE PO PRN (15:19)
[2023-09-15] MEDS ORDERED: BENZOCAINE/MENTHOL (CHLORASEPTIC ) LOZENGE MM PRN (15:19)
[2023-09-15] MEDS ORDERED: guaiFENesin 600 MG TABLET.ER (FP) PO PRN (15:19)
[2023-09-15] MEDS ORDERED: MAG HYDROX/AL HYDROX/SIMETH 30 ML UNIT-DOSE CUP PO PRN (15:19)
[2023-09-15] MEDS ORDERED: LOPERAMIDE HCL 2 MG CAPSULE PO PRN (15:19)
[2023-09-15] MEDS ORDERED: ONDANSETRON *ODT* 4 MG TABLET SL PRN (15:19)
[2023-09-15] MEDS ORDERED: NALOXONE HCL 0.4 MG/ML VIAL IM PRN (15:19)
[2023-09-15] MEDS ORDERED: DICYCLOMINE HCL 10 MG CAPSULE PO PRN (15:19)
[2023-09-15] MEDS ORDERED: NALOXONE (NARCAN) HCL 4 MG/0.1 ML SPRAY NS PRN (15:19)
[2023-09-15] MEDS: MELATONIN 5 MG TABLETS PO SCH (22:26)
[2023-09-15] MEDS: THIAMINE 100 MG TABLET PO SCH (22:26)
[2023-09-16] MEDS ORDERED: methaDONE HCL 10 MG TABLET PO SCH (09:15)
[2023-09-16] MEDS: PRENATAL VITAMINS W/ FOLIC ACID TABLET (FP) PO SCH (10:20)
[2023-09-16] MEDS: methaDONE 40 MG, methaDONE 20 MG PO SCH (10:20)
[2023-09-16] MEDS: diazePAM 5 MG TABLET PO SCH (10:56)
[2023-09-16 11:53] LABS: HEMATOCRIT 39.7 % (32.4-45.2); HEMOGLOBIN 13.2 GM/dL (10.7-15.3); MCH 27.6 pg (25.7-33.7); MCHC 33.1 g/dl (32.0-36.0); MEAN CELL VOLUME 83.3 fl (80-96); MEAN PLT VOLUME 7.5 fl (7.5-11.1); PLATELET COUNT 276 10^3/uL (134-434); RBC 4.77 M/mm3 (3.60-5.2); RDW 15.1 % (11.6-15.6); WHITE BLOOD COUNT 6.1 K/mm3 (4.0-10.0)
[2023-09-16 11:58] LABS: ALBUMIN 2.9 g/dl (3.4-5.0); CALCIUM 8.8 mg/dL (8.5-10.1)
[2023-09-16 12:02] LABS: CREATININE 0.9 mg/dL (0.55-1.3)
[2023-09-16 12:03] LABS: BILIRUBIN,TOTAL 0.2 mg/dL (0.2-1); TOT PROT 5.8 g/dl (6.4-8.2)
[2023-09-16] MEDS: diazePAM 5 MG TABLET PO PRN (13:50)
[2023-09-16] MEDS: METHOCARBAMOL 500 MG TABLET PO PRN (17:13)
[2023-09-16] MEDS: QUEtiapine FUMARATE 50 MG TABLET PO SCH (22:07)
[2023-09-18] MEDS: diazePAM 5 MG TABLET PO SCH (05:41)
[2023-09-18] MEDS: NICOTINE POLACRILEX 2 MG GUM BUC PRN (12:34)
[2023-09-19] MEDS: diazePAM 5 MG TABLET PO SCH (05:27)
[2023-09-19] MEDS: MAGNESIUM HYDROX 2400MG/30ML ORAL SUSPENSION 30 ML CUP PO PRN (09:01)
[2023-09-19] MEDS: POLYETHYLENE GLYCOL (HEALTHYLAX) 3350 17 GM PACKET PO PRN (14:44)
[2023-09-19 21:18] VITALS: RESP 16
[2023-09-20] MEDS: diazePAM 5 MG TABLET PO SCH (05:53)
[2023-09-20] MEDS ORDERED: diazePAM 5 MG TABLET PO ONE (06:00)
[2023-09-20] MEDS ORDERED: diazePAM 5 MG TABLET PO SCH (10:00)
[2023-09-20] MEDS: MAGNESIUM CITRATE 300 ML BOTTLE PO PRN (12:47)
[2023-09-21] MEDS: diazePAM 5 MG TABLET PO ONE (05:46)
[2023-09-21 08:39] VITALS: BP 109/75; PULSE 88; TEMP 97.9
[2023-09-21] MEDS ORDERED: NALOXONE (NARCAN) HCL 4 MG/0.1 ML SPRAY NS PRN (09:10)
== END 2023-09-21 09:18 | disposition home or self-care (01) | DRG 773 ==
LOC: YASAS 12:55 → Y3N 15:58
PROVIDERS: ADMIT Allergy & Immunology; ATTEND Surgery
PROC: HZ2ZZZZ Detoxification Services for Substance Abuse Treatment (ICD-10-PCS; principal; 2023-09-15)
DX: F10.230 Alcohol dependence with withdrawal, uncomplicated (principal); F11.20 Opioid dependence, uncomplicated; F14.20 Cocaine dependence, uncomplicated; F13.20 Sedative, hypnotic or anxiolytic dependence, uncomplicated; F17.210 Nicotine dependence, cigarettes, uncomplicated; F25.9 Schizoaffective disorder, unspecified; G47.00 Insomnia, unspecified; Z86.19 Personal history of other infectious and parasitic diseases
CPT/HCPCS: 36415; 80053; 80305; 80307; 85027; 86593; 86780

== ENCOUNTER 2023-12-03 13:27 | Inpatient (IN) | payer OTHER ==
[2023-12-03 15:12] VITALS: BMI 23.0
[2023-12-03] MEDS ORDERED: BENZOCAINE/MENTHOL (CHLORASEPTIC ) LOZENGE MM PRN (16:44)
[2023-12-03] MEDS ORDERED: guaiFENesin 600 MG TABLET.ER (FP) PO PRN (16:44)
[2023-12-03] MEDS ORDERED: DICYCLOMINE HCL 10 MG CAPSULE PO PRN (16:44)
[2023-12-03] MEDS ORDERED: MAG HYDROX/AL HYDROX/SIMETH 30 ML UNIT-DOSE CUP PO PRN (16:44)
[2023-12-03] MEDS ORDERED: ONDANSETRON *ODT* 4 MG TABLET SL PRN (16:44)
[2023-12-03] MEDS ORDERED: NALOXONE (NARCAN) HCL 4 MG/0.1 ML SPRAY NS PRN (16:44)
[2023-12-03] MEDS ORDERED: NICOTINE POLACRILEX 2 MG GUM BUC PRN (16:44)
[2023-12-03] MEDS ORDERED: P-EPHED 60MG/TRIPROLIDI 2.5MG TABLET PO PRN (16:44)
[2023-12-03] MEDS ORDERED: BENZONATATE 200 MG CAPSULE PO PRN (16:44)
[2023-12-03] MEDS ORDERED: LOPERAMIDE HCL 2 MG CAPSULE PO PRN (16:44)
[2023-12-03] MEDS ORDERED: POLYETHYLENE GLYCOL (HEALTHYLAX) 3350 17 GM PACKET PO PRN (16:44)
[2023-12-03] MEDS ORDERED: BISMUTH SUBSALICYLATE 524 MG/30 ML PO PRN (16:44)
[2023-12-03] MEDS ORDERED: IBUPROFEN 600 MG TABLET (FP) PO PRN (16:44)
[2023-12-03] MEDS ORDERED: MAGNESIUM HYDROX 2400MG/30ML ORAL SUSPENSION 30 ML CUP PO PRN (16:44)
[2023-12-03] MEDS: hydrOXYzine PAMOATE 25 MG CAPSULE (FP) PO PRN (18:38)
[2023-12-03] MEDS: METHOCARBAMOL 500 MG TABLET PO PRN (18:38)
[2023-12-03] MEDS: THIAMINE 100 MG TABLET PO SCH (22:41)
[2023-12-03] MEDS: MELATONIN 5 MG TABLETS PO SCH (22:41)
[2023-12-04 09:46] LABS: HEMATOCRIT 36.3 % (32.4-45.2); HEMOGLOBIN 11.9 GM/dL (10.7-15.3); MCH 27.6 pg (25.7-33.7); MCHC 32.9 g/dl (32.0-36.0); MEAN CELL VOLUME 83.8 fl (80-96); MEAN PLT VOLUME 7.7 fl (7.5-11.1); PLATELET COUNT 274 10^3/uL (134-434); RBC 4.33 M/mm3 (3.60-5.2); RDW 14.6 % (11.6-15.6); WHITE BLOOD COUNT 5.5 K/mm3 (4.0-10.0)
[2023-12-04 09:53] LABS: CALCIUM 8.3 mg/dL (8.5-10.1)
[2023-12-04 09:54] LABS: ALBUMIN 2.7 g/dl (3.4-5.0); BLOOD UREA NITROGEN 20.2 mg/dL (7-18)
[2023-12-04 09:57] LABS: CREATININE 0.8 mg/dL (0.55-1.3)
[2023-12-04 09:58] LABS: BILIRUBIN,TOTAL 0.1 mg/dL (0.2-1); TOT PROT 5.5 g/dl (6.4-8.2)
[2023-12-04] MEDS: PRENATAL VITAMINS W/ FOLIC ACID TABLET (FP) PO SCH (10:23)
[2023-12-04] MEDS: diazePAM 5 MG TABLET PO PRN (11:41)
[2023-12-04] MEDS ORDERED: methaDONE HCL 10 MG TABLET PO SCH (11:45)
[2023-12-04] MEDS: methaDONE 40 MG, methaDONE 20 MG PO SCH (11:46)
[2023-12-04] MEDS: diazePAM 5 MG TABLET PO SCH (17:10)
[2023-12-04] MEDS: NICOTINE POLACRILEX 2 MG LOZENGE BC PRN (17:11)
[2023-12-04] MEDS: QUEtiapine FUMARATE 50 MG TABLET PO SCH (22:24)
[2023-12-05] MEDS: diazePAM 5 MG TABLET PO SCH (06:02)
[2023-12-05] MEDS: LISINOPRIL 5 MG TABLET PO SCH (13:14)
[2023-12-06] MEDS: diazePAM 5 MG TABLET PO SCH (05:44)
[2023-12-07] MEDS: diazePAM 5 MG TABLET PO ONE (06:23)
[2023-12-07 06:25] VITALS: BP 131/78; PULSE 66; RESP 18; TEMP 97.6
[2023-12-07] MEDS: NALOXONE (NYS OPIOID OVERDOSE PROGRAM) 4 MG/0.1 ML SPRAY NS PRN (09:40)
== END 2023-12-07 09:47 | disposition other institution (70) | DRG 773 ==
LOC: YASAS 13:27 → Y6N 17:49
PROVIDERS: ADMIT Allergy & Immunology; ATTEND Surgery
PROC: HZ2ZZZZ Detoxification Services for Substance Abuse Treatment (ICD-10-PCS; principal; 2023-12-03)
DX: F13.230 Sedative, hypnotic or anxiolytic dependence with withdrawal, uncomplicated (principal); F11.20 Opioid dependence, uncomplicated; F14.10 Cocaine abuse, uncomplicated; F17.213 Nicotine dependence, cigarettes, with withdrawal; F41.9 Anxiety disorder, unspecified; Z86.19 Personal history of other infectious and parasitic diseases; Z88.6 Allergy status to analgesic agent
CPT/HCPCS: 36415; 80053; 80305; 80307; 85027; 86593; 86780

== ENCOUNTER 2024-02-28 11:46 | Inpatient (IN) | payer OTHER ==
[2024-02-28] MEDS ORDERED: ONDANSETRON *ODT* 4 MG TABLET SL PRN (13:29)
[2024-02-28] MEDS ORDERED: LOPERAMIDE HCL 2 MG CAPSULE PO PRN (13:29)
[2024-02-28] MEDS ORDERED: DICYCLOMINE HCL 10 MG CAPSULE PO PRN (13:29)
[2024-02-28] MEDS ORDERED: guaiFENesin 600 MG TABLET.ER (FP) PO PRN (13:29)
[2024-02-28] MEDS ORDERED: BENZOCAINE/MENTHOL (CHLORASEPTIC ) LOZENGE MM PRN (13:29)
[2024-02-28] MEDS ORDERED: POLYETHYLENE GLYCOL (HEALTHYLAX) 3350 17 GM PACKET PO PRN (13:29)
[2024-02-28] MEDS ORDERED: BENZONATATE 200 MG CAPSULE PO PRN (13:29)
[2024-02-28] MEDS ORDERED: NALOXONE (NARCAN) HCL 4 MG/0.1 ML SPRAY NS PRN (13:29)
[2024-02-28] MEDS ORDERED: MAG HYDROX/AL HYDROX/SIMETH 30 ML UNIT-DOSE CUP PO PRN (13:29)
[2024-02-28 13:34] VITALS: BMI 21.9
[2024-02-28] MEDS: diazePAM 5 MG TABLET PO PRN (17:22)
[2024-02-28] MEDS: METHOCARBAMOL 500 MG TABLET PO PRN (17:24)
[2024-02-28] MEDS: NICOTINE POLACRILEX 2 MG LOZENGE BC PRN (17:27)
[2024-02-28] MEDS: diazePAM 5 MG TABLET PO SCH (17:27)
[2024-02-28] MEDS: hydrOXYzine PAMOATE 25 MG CAPSULE (FP) PO PRN (22:05)
[2024-02-28] MEDS: MELATONIN 5 MG TABLETS PO SCH (22:06)
[2024-02-28] MEDS: THIAMINE 100 MG TABLET PO SCH (22:06)
[2024-02-29] MEDS ORDERED: methaDONE HCL 10 MG TABLET PO SCH (09:00)
[2024-02-29] MEDS: methaDONE 40 MG, methaDONE 30 MG PO SCH (09:37)
[2024-02-29] MEDS: PRENATAL VITAMINS W/ FOLIC ACID TABLET (FP) PO SCH (09:37)
[2024-02-29] MEDS: LISINOPRIL 5 MG TABLET PO SCH (09:37)
[2024-02-29] MEDS: QUEtiapine FUMARATE 50 MG TABLET PO SCH (10:19)
[2024-02-29 11:30] LABS: HEMATOCRIT 39.2 % (32.4-45.2); HEMOGLOBIN 12.7 GM/dL (10.7-15.3); MCH 26.7 pg (25.7-33.7); MCHC 32.4 g/dl (32.0-36.0); MEAN CELL VOLUME 82.5 fl (80-96); MEAN PLT VOLUME 8.1 fl (7.5-11.1); PLATELET COUNT 319 10^3/uL (134-434); POTASSIUM 4.1 mmol/L (3.5-5.1); RBC 4.75 M/mm3 (3.60-5.2); WHITE BLOOD COUNT 7.2 K/mm3 (4.0-10.0)
[2024-02-29 11:37] LABS: BLOOD UREA NITROGEN 20.5 mg/dL (7-18)
[2024-02-29 11:38] LABS: ALBUMIN 3.2 g/dl (3.4-5.0)
[2024-02-29 11:39] LABS: BILIRUBIN,TOTAL 0.2 mg/dL (0.2-1); TOT PROT 6.3 g/dl (6.4-8.2)
[2024-02-29 11:40] LABS: CALCIUM 9.2 mg/dL (8.5-10.1)
[2024-02-29] MEDS: NICOTINE POLACRILEX 2 MG GUM BUC PRN (19:14)
[2024-03-01] MEDS: diazePAM 5 MG TABLET PO SCH (05:37)
[2024-03-02] MEDS: diazePAM 5 MG TABLET PO SCH (05:27)
[2024-03-03] MEDS: diazePAM 5 MG TABLET PO ONE (05:40)
[2024-03-03] MEDS: NALOXONE (NYS OPIOID OVERDOSE PROGRAM) 4 MG/0.1 ML SPRAY NS SCH (15:11)
[2024-03-05] MEDS: MAGNESIUM HYDROX 2400MG/30ML ORAL SUSPENSION 30 ML CUP PO PRN (06:13)
[2024-03-05 06:23] VITALS: RESP 16
[2024-03-05 09:19] VITALS: BP 131/79; PULSE 81; TEMP 97.6
== END 2024-03-05 10:03 | disposition home or self-care (01) | DRG 773 ==
LOC: YASAS 11:46 → Y6N 15:12 → Y3N 20:36
PROVIDERS: ADMIT Allergy & Immunology; ATTEND Allergy & Immunology
PROC: HZ2ZZZZ Detoxification Services for Substance Abuse Treatment (ICD-10-PCS; principal; 2024-02-28)
DX: F10.230 Alcohol dependence with withdrawal, uncomplicated (principal); F13.230 Sedative, hypnotic or anxiolytic dependence with withdrawal, uncomplicated; F11.20 Opioid dependence, uncomplicated; F17.210 Nicotine dependence, cigarettes, uncomplicated; F25.9 Schizoaffective disorder, unspecified; F19.24 Other psychoactive substance dependence with psychoactive substance-induced mood disorder; F41.9 Anxiety disorder, unspecified; F32.9 Major depressive disorder, single episode, unspecified; I10 Essential (primary) hypertension; Z86.19 Personal history of other infectious and parasitic diseases; Z88.6 Allergy status to analgesic agent; Z59.00 Homelessness unspecified; Z56.0 Unemployment, unspecified
CPT/HCPCS: 36415; 80053; 80305; 80307; 81025; 85027; 86593; 86780; 93005; 93010

== ENCOUNTER 2024-08-05 18:08 | Inpatient (IN) | payer OTHER ==
[2024-08-05 18:48] VITALS: BMI 22.6
[2024-08-05] MEDS ORDERED: BENZOCAINE/MENTHOL (CHLORASEPTIC ) LOZENGE MM PRN (21:33)
[2024-08-05] MEDS ORDERED: BENZONATATE 200 MG CAPSULE PO PRN (21:33)
[2024-08-05] MEDS ORDERED: ONDANSETRON *ODT* 4 MG TABLET SL PRN (21:33)
[2024-08-05] MEDS ORDERED: guaiFENesin 600 MG TABLET.ER (FP) PO PRN (21:33)
[2024-08-05] MEDS ORDERED: MAG HYDROX/AL HYDROX/SIMETH 30 ML UNIT-DOSE CUP PO PRN (21:33)
[2024-08-05] MEDS ORDERED: NALOXONE (NARCAN) HCL 4 MG/0.1 ML SPRAY NS PRN (21:33)
[2024-08-05] MEDS ORDERED: LOPERAMIDE HCL 2 MG CAPSULE PO PRN (21:33)
[2024-08-05] MEDS ORDERED: DICYCLOMINE HCL 10 MG CAPSULE PO PRN (21:33)
[2024-08-05] MEDS ORDERED: MELATONIN 5 MG TABLETS ONE (22:39)
[2024-08-05] MEDS ORDERED: diazePAM 5 MG TABLET ONE (22:39)
[2024-08-05] MEDS: MELATONIN 5 MG TABLETS PO SCH (22:47)
[2024-08-05] MEDS: THIAMINE 100 MG TABLET PO SCH (22:49)
[2024-08-05] MEDS: diazePAM 5 MG TABLET PO SCH (22:49)
[2024-08-06 09:57] LABS: HEMATOCRIT 39.4 % (34.1-44.9); HEMOGLOBIN 12.5 g/dL (11.2-15.7); MCHC 31.7 g/dl (32.2-35.5); MEAN CELL VOLUME 85.3 fl (79.4-94.8); MEAN PLT VOLUME 9.5 fl (9.4-12.3); PLATELET COUNT 262 x10^3/uL (182-369); RDW 14.3 % (12.3-16.6)
[2024-08-06 09:58] LABS: CHLORIDE 105 mmol/L (98-107); POTASSIUM 3.8 mmol/L (3.5-5.1); SODIUM 141 mmol/L (136-145)
[2024-08-06 10:00] LABS: CALCIUM 8.9 mg/dL (8.5-10.1)
[2024-08-06 10:01] LABS: ANION GAP 4 mmol/L (4-13); BLOOD UREA NITROGEN 17.8 mg/dL (7-18); CO2 31 mmol/L (21-32); GLUCOSE,RANDOM 109 mg/dL (74-106)
[2024-08-06 10:04] LABS: CREATININE 0.8 mg/dL (0.55-1.3); SGOT/AST 15 U/L (15-37); SGPT/ALT 20 U/L (13-61)
[2024-08-06 10:05] LABS: BILIRUBIN,TOTAL 0.2 mg/dL (0.2-1)
[2024-08-06 10:06] LABS: TOT PROT 5.7 g/dl (6.4-8.2)
[2024-08-06 10:07] LABS: ALK PHOS 115 U/L (45-117)
[2024-08-06] MEDS: PRENATAL VITAMINS W/ FOLIC ACID TABLET (FP) PO SCH (10:10)
[2024-08-06] MEDS: NICOTINE 14 MG/24 HOURS TOPICAL PATCH TD SCH (10:12)
[2024-08-06] MEDS: METHOCARBAMOL 500 MG TABLET PO PRN (10:14)
[2024-08-06] MEDS ORDERED: methaDONE HCL 10 MG TABLET PO ONE (11:30)
[2024-08-06] MEDS: methaDONE 40 MG, methaDONE 30 MG PO ONE (11:47)
[2024-08-06] MEDS: LISINOPRIL 5 MG TABLET PO SCH (11:48)
[2024-08-06 13:45] LABS: HCV DIAGNOSTIC IN-HOUSE W/RFLX NON-REACTIVE (NONREACTIVE); HIV INTERPRETATION NEGATIVE (NEGATIVE)
[2024-08-06 13:48] LABS: SYPHILIS W/ RPR CONF REACTIVE (NONREACTIVE)
[2024-08-06] MEDS: diazePAM 5 MG TABLET PO PRN (19:49)
[2024-08-06] MEDS: MAGNESIUM HYDROX 2400MG/30ML ORAL SUSPENSION 30 ML CUP PO PRN (21:32)
[2024-08-06] MEDS: QUEtiapine FUMARATE 50 MG TABLET PO SCH (22:22)
[2024-08-07] MEDS: diazePAM 5 MG TABLET PO SCH (06:05)
[2024-08-07] MEDS ORDERED: methaDONE HCL 10 MG TABLET PO SCH (07:45)
[2024-08-07] MEDS: methaDONE 40 MG, methaDONE 30 MG PO SCH (08:09)
[2024-08-07] MEDS: hydrOXYzine PAMOATE 25 MG CAPSULE (FP) PO PRN (09:30)
[2024-08-07] MEDS: POLYETHYLENE GLYCOL (HEALTHYLAX) 3350 17 GM PACKET PO PRN (17:38)
[2024-08-07] MEDS: NICOTINE POLACRILEX 2 MG GUM BUC PRN (22:13)
[2024-08-08] MEDS: diazePAM 5 MG TABLET PO SCH (05:34)
[2024-08-09] MEDS: diazePAM 5 MG TABLET PO ONE (05:54)
[2024-08-10 08:50] VITALS: BP 127/78; PULSE 78; RESP 14; TEMP 97.9
== END 2024-08-10 10:53 | disposition home or self-care (01) | DRG 773 ==
LOC: YASAS 18:08 → Y3N 22:36
PROVIDERS: ADMIT Family Medicine; ATTEND Family Medicine Addiction Medicine
PROC: HZ2ZZZZ Detoxification Services for Substance Abuse Treatment (ICD-10-PCS; principal; 2024-08-05)
DX: F10.230 Alcohol dependence with withdrawal, uncomplicated (principal); F13.230 Sedative, hypnotic or anxiolytic dependence with withdrawal, uncomplicated; F11.20 Opioid dependence, uncomplicated; F17.210 Nicotine dependence, cigarettes, uncomplicated; F31.9 Bipolar disorder, unspecified; F20.9 Schizophrenia, unspecified; F41.9 Anxiety disorder, unspecified; I10 Essential (primary) hypertension
CPT/HCPCS: 36415; 80053; 80305; 80307; 81025; 85027; 86593; 86780; 86803; 87389; 93005; 93010